=== PATIENT | male | born 1950 ===

== ENCOUNTER 2019-09-14 11:19 | Emergency (ER) | payer MEDICARE ==
[~2019-09-14] VITALS: Ht 167.6 cm; Wt 102.6 kg
[~2019-09-14 11:19] MED LIST: APIX5TAB PO; ATOR20TA37 PO; FERR210T PO; FERR324T5 PO; GABA300C10 PO; INSU200I4 SC; POTA10CA PO; SPIR25TA5 PO
--- NOTE | 2019-09-14 12:04 | NUR ---
[place] in [facility] - 09/14/19 at 1204 by ZOEY THIS IS A 68 YO MALE COMING IN FOR
--- NOTE | 2019-09-14 12:04 | NUR ---
This is a 68 yo male coming in for bleeding from L forearm fistula site. Pt states Monday had dialysis, still having bleeding from site. PA in room, verbalized minimal bleeding, and to change dressing to 2x2 and coban pressure dressing. Patient placed on continuous spo2 at 96%, cycle bp q1hr.
[2019-09-14 12:25] VITALS: BP 120/68
== END 2019-09-14 12:38 | disposition home or self-care (01) ==
LOC: ED 12:20
DX: T82.838A Hemorrhage due to vascular prosthetic devices, implants and grafts, initial encounter (principal); J95.01 Hemorrhage from tracheostomy stoma
CPT/HCPCS: 99283